=== PATIENT | female | born 1980 | race Caucasian/White ===

== ENCOUNTER 2021-05-11 17:36 | Emergency (ER) | payer OTHER ==
[~2021-05-11 17:36] MED LIST: ARMOUR THYROID60 MG PO; CYANOCOBAL1000 MCG/1 INJ; DILANTIN100 MG PO; ECOTRIN81 MG PO; FERROUS SULFAT325 M2 PO; FLEXERIL 10 MG10 MG PO; GABAPENTIN400 MG PO; GLUCOPHAGE500 MG PO; HYDROCHLOROTHIA25 MG PO; IBUPROFEN600 MG PO; LIPITOR TAB 2020 MG PO; MOBIC15 MG PO; NITROSTAT0.4 MG SL; NORCO 5-325 TA1 EACH PO; PROTONIX40 MG PO; PROZAC40 MG PO; QUETIAPINE FUM100 MG PO; SYNTHROID125 MCG PO; TROKENDI XR200 MG PO; [UNRECOGNIZED DRUG - OTHER] PO
[2021-05-11 20:58] LABS: HEMOGLOBIN 12.3 gm/dl (12.3-15.3); RED BLOOD COUNT 4.95 M/UL (4.00-5.10); WHITE BLOOD COUNT 10.9 K/UL (4.5-11.0)
[2021-05-11 21:22] LABS: BUN/CREATININE RATIO 14 (0-10)
[2021-05-12] MEDS ORDERED: PROVENTIL HFA6.7 GM INH (03:27)
== END 2021-05-12 03:44 | disposition home or self-care (01) ==
LOC: ER1 17:36
PROVIDERS: Nurse Practitioner
DX: R09.1 Pleurisy (principal); R05.9 Cough, unspecified; Z20.822 Contact with and (suspected) exposure to COVID-19; E11.9 Type 2 diabetes mellitus without complications; E78.5 Hyperlipidemia, unspecified; J44.9 Chronic obstructive pulmonary disease, unspecified; Z87.891 Personal history of nicotine dependence
CPT/HCPCS: 71045; 80048; 81001; 82550; 82553; 84484; 85025; 93005; 99284; Q9967; U0002